=== PATIENT | female | born 1995 | race Two or more races ===

== ENCOUNTER 2018-04-27 20:44 | Emergency (ER) | payer OTHER ==
[~2018-04-27] VITALS: Ht 157.5 cm; Wt 63.0 kg
--- NOTE | 2018-04-27 21:05 | NUR ---
Dr. Eubanks at bedside for MSE.
[2018-04-27] MEDS ORDERED: ACETAMINOPHEN/CODEINE 300-30 MG TABLET PO ONE (21:15)
[2018-04-27] MEDS ORDERED: ACETAMINOPHEN/CODEINE 300-30 MG TABLET ONE (21:18)
[2018-04-27 21:23] LABS: BASOPHILS % (AUTO) 0.5 % (0.0-2.0); EOSINOPHILS # (AUTO) 0.2 K/uL (0.0-0.7); EOSINOPHILS % (AUTO) 1.8 % (0.0-7.0); HEMATOCRIT 38.2 % (31.2-41.9); LYMPHOCYTES # (AUTO) 2.8 K/uL (20.0-40.0); LYMPHOCYTES % (AUTO) 31.3 % (20.5-51.5); MEAN CORPUSCULAR HEMOGLOBIN 30.4 uug (24.7-32.8); MEAN CORPUSCULAR HGB CONC 34 g/dL (32.3-35.6); MEAN CORPUSCULAR VOLUME 89.4 fL (75.5-95.3); MONOCYTES # (AUTO) 0.7 K/uL (2.0-10.0); MONOCYTES % (AUTO) 7.6 % (0.0-11.0); NEUTROPHILS # (AUTO) 5.3 K/uL (1.8-8.9); NEUTROPHILS % (AUTO) 58.8 % (38.5-71.5); PLATELET COUNT (AUTO) 269 K/uL (179-408); RED BLOOD CELL COUNT(AUTO) 4.27 MIL/uL (3.63-4.92)
[2018-04-27 21:29] LABS: CREATININE 0.7 mg/dL (0.6-1.3)
--- NOTE | 2018-04-27 21:29 | NUR ---
Pt out of ER for CT.
--- NOTE | 2018-04-27 22:00 | NUR ---
Patient discharged to home in stable conditon. Written and verbal after care instructions given. Patient verbalizes understanding of instructions. Pt ambulated out of ER with steady gait, no acute signs of distress, all belongings taken, VSS.
[2018-04-27 22:02] VITALS: BP 127/73
== END 2018-04-27 22:04 | disposition home or self-care (01) ==
LOC: ER 20:45
DX: H53.8 Other visual disturbances (principal); I10 Essential (primary) hypertension; R51 Headache; Z88.1 Allergy status to other antibiotic agents; Z91.040 Latex allergy status
CPT/HCPCS: 36415; 70450; 71045; 80048; 84484; 85025; 93005; 99285; A4663; 70030-TC